=== PATIENT | male | born 1950 | race Hispanic/Latino ===

== ENCOUNTER 2021-02-01 12:16 | Outpatient (CLI) | payer MEDICARE, OTHER | END 2021-02-01 12:17 | disposition home or self-care (01) | LOC: ULT 12:16 | PROVIDERS: ATTEND Internal Medicine | DX: I73.9 Peripheral vascular disease, unspecified (principal); R07.9 Chest pain, unspecified; R06.09 Other forms of dyspnea; I08.1 Rheumatic disorders of both mitral and tricuspid valves | CPT/HCPCS: 93306; 93922; 93923 ==

== ENCOUNTER 2021-02-02 12:57 | Outpatient (CLI) | payer MEDICARE, OTHER | END 2021-02-02 12:58 | disposition home or self-care (01) | PROVIDERS: ATTEND Internal Medicine | DX: R07.9 Chest pain, unspecified (principal) | CPT/HCPCS: 93017 ==

== ENCOUNTER → 2023-01-24 | Day surgery (SDC) | payer MEDICARE, OTHER ==
[2023-01-15 09:54] VITALS: BMI 26.4
[~2023-01-24] MED LIST: Lidocaine 1% PF 5 ML VIAL ONE; Sodium Bicarbonate 2.5 MEQ/5 ML VIAL ONE
[2023-01-24 15:14] VITALS: BP 140/77
== END | disposition home or self-care (01) ==
LOC: ULT 13:05
PROVIDERS: ATTEND Otolaryngology Otolaryngic Allergy
PROC: 0G9G3ZX Drainage of Left Thyroid Gland Lobe, Percutaneous Approach, Diagnostic (ICD-10-PCS; principal; 2023-01-24)
DX: E04.1 Nontoxic single thyroid nodule (principal); Z79.84 Long term (current) use of oral hypoglycemic drugs; Z79.899 Other long term (current) drug therapy
CPT/HCPCS: 10005; 88173